=== PATIENT | female | born 1965 | race Caucasian/White ===

== ENCOUNTER 2019-11-20 20:12 | Emergency (ER) | payer BC, OTHER ==
[~2019-11-20] VITALS: Ht 160 cm; Wt 72.6 kg
[2019-11-20] MEDS ORDERED: ERYT1OIN RIGHTEYE (22:43)
== END 2019-11-20 22:50 | disposition home or self-care (01) ==
LOC: ER 20:12
DX: S05.01XA Injury of conjunctiva and corneal abrasion without foreign body, right eye, initial encounter (principal); Z88.2 Allergy status to sulfonamides; X58.XXXA Exposure to other specified factors, initial encounter
CPT/HCPCS: 99282